=== PATIENT | male | born 1945 | race Caucasian/White ===

== ENCOUNTER 2024-01-25 06:08 | Day surgery (SDC) | payer MEDICARE, BC ==
[~2024-01-25] VITALS: Ht 182.9 cm; Wt 94.8 kg
[~2024-01-25 06:08] MED LIST: AMOX500 PO; ASPI81CH PO; BOSULIF PO; PREG50 PO; RAMI2.5 PO; ROSU10TA PO
[2024-01-25] MEDS ORDERED: propofoL 20 ML IV ONE (06:38)
[2024-01-25] MEDS ORDERED: Midazolam HCl 1MG / ML 2ML Vial ONE (06:38)
[2024-01-25] MEDS ORDERED: FentaNYL Citrate 50 MCG/ML 2 ML Injection ONE (06:38)
[2024-01-25] MEDS ORDERED: Rocuronium Bromide 10 MG/ML 5ML Injection IV ONE ×2 (06:40→07:45)
[2024-01-25] MEDS ORDERED: Bupivacaine 0.5% HCl 5 MG/ML 30MLVIAL ONE (06:43)
[2024-01-25] MEDS ORDERED: Tranexamic Acid 1,000 MG in NS 100 ML IV SCH (06:45)
[2024-01-25] MEDS ORDERED: SCEMBLIX40 MG (06:53)
[2024-01-25] MEDS ORDERED: Lactated Ringer's 1,000 ML IV ONE ×2 (07:06→07:20)
[2024-01-25] MEDS ORDERED: CeFAZolin Sodium 2,000 MG VIAL ONE (07:06)
[2024-01-25] MEDS ORDERED: NS 50 ML IV ONE (07:06)
[2024-01-25] MEDS ORDERED: Lidocaine 1%-Epineph 1:100000 20 ML MDV ONE (07:12)
[2024-01-25] MEDS ORDERED: Dexamethasone Sod Phos 10 MG/ML 1ML VIAL ONE (07:53)
[2024-01-25] MEDS ORDERED: Ondansetron HCl 2 MG / ML 2ML Vial ONE (07:53)
[2024-01-25] MEDS ORDERED: EPINEPhrine HCl 1 MG/ML 1ML Amp XX ONE (07:57)
--- NOTE | 2024-01-25 08:07 | NUR ---
01/25/24 0807 Ericka Loco PATIENT ON TMAXX BED IN BEACH CHAIR POSITION. GEL PAD UNDER BUTTOCKS, WEDGE UNDER LEGS, GEL PADS UNDER DOULE SEATBELTS (AT WAIST AND BELOW KNEES), GEL PAD UNER RIGHT ARM ON ARMBOARD SECURED WITH WRIST RESTRAINT. 1ML OF EPI (1MG/ML) ADDED TO EACH OF THE FIRST THREE BAGS OF LR FOR IRRIGATION AT [facility].
[2024-01-25] MEDS ORDERED: Sugammadex Sodium 200 MG/2ML SDV (100 MG/ML) ONE (08:45)
[2024-01-25] MEDS ORDERED: Ketorolac Tromethamine 30mg Vial ONE (08:47)
[2024-01-25 10:12] VITALS: BP 102/70
--- NOTE | 2024-01-25 10:23 | NUR ---
01/25/[address] SAID THAT SECOND DOSE OF TXA WAS NOT NECESSARY. PT READY TO GO HOME BEFORE 2ND DOSE WOULDBE GIVEN. PT STABLE. NO C/O OF PAIN OR NAUSEA.
== END 2024-01-25 09:08 | disposition home or self-care (01) ==
LOC: ORSCSDS 06:08
PROVIDERS: Orthopaedic Surgery Sports Medicine
PROC: 0RNK4ZZ Release Left Shoulder Joint, Percutaneous Endoscopic Approach (ICD-10-PCS; principal; 2024-01-25 07:30)
PROC: 0LQ24ZZ Repair Left Shoulder Tendon, Percutaneous Endoscopic Approach (ICD-10-PCS; principal; 2024-01-25 07:30)
DX: M75.112 Incomplete rotator cuff tear or rupture of left shoulder, not specified as traumatic (principal); S43.432A Superior glenoid labrum lesion of left shoulder, initial encounter; M19.012 Primary osteoarthritis, left shoulder; M75.42 Impingement syndrome of left shoulder; M75.22 Bicipital tendinitis, left shoulder; I10 Essential (primary) hypertension
CPT/HCPCS: C1713; J0171; J0690; J1100; J1885; J2250; J2405; J2704; J3010; J7120

== ENCOUNTER 2024-07-22 16:52 | Inpatient (IN) | payer MEDICARE, BC ==
[~2024-07-22] VITALS: Ht 182.9 cm; Wt 94.3 kg
[~2024-07-22 16:52] MED LIST changes: +SCEMBLIX40 MG PO
[2024-07-22] MEDS ORDERED: Lactated Ringer's 1,000 ML IV ONE (17:25)
[2024-07-22 17:50] LABS: BASOPHILS ABSOLUTE AUTO 0.03 K/mm3 (0.00-0.23); BASOPHILS PERCENT AUTO 0 % (0-2); EOSINOPHILS ABSOLUTE AUTO 0.24 K/mm3 (0.00-0.68); EOSINOPHILS PERCENT AUTO 3 % (0-6); Hematocrit 35.7 % (37.0-53.0); Hemoglobin 11.8 g/dL (13.5-17.5); IMMATURE GRAN ABSOLUTE AUTO 0.04 K/mm3 (0.00-0.10); IMMATURE GRAN PERCENT AUTO 1 % (0-1); LYMPHOCYTES ABSOLUTE AUTO 0.67 K/mm3 (0.84-5.20); LYMPHOCYTES PERCENT AUTO 9 % (21-46); MONOCYTES ABSOLUTE AUTO 1.63 K/mm3 (0.16-1.47); MONOCYTES PERCENT AUTO 21 % (4-13); Mean Corpuscular HGB 26.8 pg (26.0-34.0); Mean Corpuscular HGB Conc 33.1 g/dL (31.5-36.5); Mean Corpuscular Volume 81 fL (80-100); Mean Platelet Volume 11.6 fL (9.1-12.4); NEUTROPHILS ABSOLUTE AUTO 5.02 K/mm3 (1.96-9.15); NEUTROPHILS PERCENT AUTO 66 % (41-73); Platelet Count 237 K/mm3 (150-400); RDW Standard Deviation 47.6 fL (35.1-46.3); Red Blood Cell Count 4.41 M/mm3 (4.30-5.90); White Blood Cell Count 7.63 K/mm3 (4.00-11.30)
[2024-07-22 18:02] LABS: Albumin, Blood 2.5 g/dL (3.4-5.0); Albumin/Globulin Ratio 0.7 (0.8-1.8); Bilirubin, Total 0.7 mg/dL (0.1-1.0); Calcium, Blood 7.7 mg/dL (8.5-10.1); Creatinine, Blood 2.23 mg/dL (0.60-1.20); Globulin, Blood 3.5 g/dL (2.2-4.0); Magnesium, Blood 1.6 mg/dL (1.6-2.4); Potassium, Blood 3.8 mmol/L (3.5-5.5)
[2024-07-22 18:14] LABS: Free Thyroxine 1.24 ng/dL (0.70-1.60)
[2024-07-22 18:16] LABS: Thyroid Stimulating Hormone 0.952 uIU/mL (0.360-4.800)
[2024-07-22] MEDS ORDERED: CefTRIAXone Sodium 1,000 MG in NS 100 ML IV ONE (18:40)
[2024-07-22 18:44] LABS: Source, Urine Clean Catch
[2024-07-22 18:48] LABS: Appearance, Urine Clear (Clear); Blood, Urine Neg (Neg); Color, Urine Amber (P-Yellow); Glucose Qualitative, Urine Neg (Neg); Ketones, Urine Neg (Neg); Leukocyte Esterase, Urine 1+ (Neg); Nitrite, Urine Neg (Neg); Protein, Urine 2+ (Neg); Specific Gravity, Urine 1.025 (1.003-1.022); Urobilinogen, Urine 1+ (Normal)
[2024-07-22 18:57] LABS: Bilirubin, Urine 1+ (Neg)
[2024-07-22 18:59] LABS: Bacteria Many /hpf; Calcium Oxalate Crystals Few /hpf; Mucus Light (0-Heavy); Red Blood Cells, Urine 0-2 /hpf (0-2); Squamous Epithelial Cells Rare /hpf (Few)
[2024-07-22] MEDS ORDERED: SPIRONOLACTONE25 MG PO (19:22)
[2024-07-22] MEDS ORDERED: CYMBALTA30 M2 PO (19:23)
[2024-07-22] MEDS ORDERED: CARVEDILOL12.5 MG PO (19:23)
[2024-07-22] MEDS ORDERED: ENTRESTO 49 MG1 EAC7 PO (19:24)
[2024-07-22 19:59] LABS: Influenza A, PCR NEGATIVE (NEGATIVE); Influenza B, PCR NEGATIVE (NEGATIVE); Resp Syncytial Virus, PCR NEGATIVE (NEGATIVE); SARS-Cov-2 (COVID-19) PCR, MMC NEGATIVE (NEGATIVE)
[2024-07-22] MEDS ORDERED: Ondansetron HCl 2 MG / ML 2ML Vial IV PRN (21:05)
[2024-07-22] MEDS ORDERED: FLU VACC TS2024-25(6MOS UP)/PF 45 MCG/0.5 ML SYRINGE IM SCH (21:05)
[2024-07-22] MEDS ORDERED: NS 1,000 ML IV SCH (21:05)
[2024-07-22 23:09] VITALS: BP 125/59
--- NOTE | 2024-07-22 23:32 | NUR ---
ADMIT NOTE 78 YR OLD MALE ADMITTED TO FLOOR FROM THE ED AITH DX OF AMB HYPOTENSIION AND WEAKNESS, FOR OBSERVATION. ALERT AND ORIENTED. INSUTUCTED ON HOW TO USE CALL LIGHT. BED ALARM ON FOR SAFETY. CALL LIGHT IN REACH
[2024-07-23 04:34] VITALS: BP 117/56
[2024-07-23 04:53] LABS: Adenovirus F 40/41 Not Detected (NOT DETECT); Astrovirus Not Detected (NOT DETECT); Campylobacter Sp Not Detected (NOT DETECT); Cryptosporidium Not Detected (NOT DETECT); Cyclospora Cayetanensis Not Detected (NOT DETECT); E. Coli O157 Not Detected (NOT DETECT); Entamoeba Histolytica Not Detected (NOT DETECT); Enteroaggregative E. coli-EAEC Not Detected (NOT DETECT); Enteropathogenic E. coli-EPEC Not Detected (NOT DETECT); Enterotoxigenic E. coli-ETEC Not Detected (NOT DETECT); Giardia Lamblia Not Detected (NOT DETECT); Norovirus GI/GII Not Detected (NOT DETECT); Plesiomonas Shigelloides Not Detected (NOT DETECT); Rotavirus A Not Detected (NOT DETECT); Salmonella Sp Not Detected (NOT DETECT); Sapovirus Not Detected (NOT DETECT); Shiga Toxin-prod E. coli-STEC Not Detected (NOT DETECT); Shigella/Enteroin E. coli-EIEC Not Detected (NOT DETECT); Vibrio Cholerae Not Detected (NOT DETECT); Vibrio Sp Not Detected (NOT DETECT); Yersinia Enterocolitica Not Detected (NOT DETECT)
--- NOTE | 2024-07-23 05:09 | NUR ---
PATIENT TRANSPORT OFFICER SUMMARY VSS. ADMITTED EARLIER THIS SHIFT FROM THE ED WITH AMBULATORY HYPOTENSION AND WEAKNESS. ED RN REPORTED HAD BEEN HAVING "DIARRHEA" A FEW TIMES AND THEY HAD SENT A STOOL SPECIMEN TO LAB FOR TESTS TO R/O C-DIFF. WAS REPORTED ALERT AND ORIENTED AND UP AD HERMELINDO. ARRIVED ON FLOOR, TRANSPORTER VOICED PT NEEDING OBSERVED IF OOB DUE TO WEAKNESS. PT AGREED TO USE OF CALL LIGHT WHEN NEEDING OOB. HAS BEEN UP TO THE BATHROOM SEVERAL TIMES. NOTE LOOSE STOOL. LINEN CHANGED SEVERAL TIMES. IVF STARTED BUT WAS PLACED ON HOLD DUE TO MULTIPLE OOB TRIPS AND INABILITY TO TAKE IV PUMP WITH. TOLERATING PO FLUIDS. AWAITING LAB RESULTS. PLACED ON CONTACT ISOLATION PRECAUTIONS UNTIL C-DIFF RULED OUT. HAS BEEN RESTING QUIETLY BETWEEN TRIPS TO THE RESTROOM. CALL LIGHT IN REACH, RAILS UP X 2, BED ALARM ON AND BED IN LOW POSITION FOR SAFETY. WILL CONT TO MONITOR
[2024-07-23 07:00] LABS: Bun/Creatinine Ratio 13.4 (12.0-20.0); Calcium, Blood 8.3 mg/dL (8.5-10.1); Creatinine, Blood 1.42 mg/dL (0.60-1.20); Potassium, Blood 3.4 mmol/L (3.5-5.5)
[2024-07-23 07:41] VITALS: BP 109/65
[2024-07-23] MEDS ORDERED: Potassium Chl 20MEQ/Water100ML 100 ML IV STA (08:05)
[2024-07-23] MEDS ORDERED: Pregabalin 75 MG Cap PO SCH (09:00)
[2024-07-23] MEDS ORDERED: Aspirin 81 MG Chew PO SCH (09:00)
[2024-07-23] MEDS ORDERED: Lactobacil 2-S.Thermo-Bifido 1 1 Cap PO SCH (09:00)
[2024-07-23] MEDS ORDERED: DULoxetine HCL 30 MG Cap DR PO SCH (09:00)
[2024-07-23] MEDS ORDERED: Carvedilol 6.25 MG Tab PO SCH (09:00)
[2024-07-23] MEDS ORDERED: Misc. Tablet PO SCH (09:00)
[2024-07-23] MEDS ORDERED: Heparin Sodium,Porcine 5,000 UNIT/0.5 ML SDV SC SCH (09:00)
[2024-07-23] MEDS ORDERED: Vancomycin HCl 125 MG Cap PO SCH (14:00)
[2024-07-23 15:54] VITALS: BP 114/57
--- NOTE | 2024-07-23 16:56 | NUR ---
SHIFT SUMMARY PATIENT A/OX4, ABLE TO MAKE NEEDS KNOWN. INDEPENDENT IN ROOM WITH AMBULATION. SPOUSE, PURNIMA, AT BEDSIDE ALL SHIFT. C DIFF + AND STARTED ON ORAL VANCO. CONTINUES WITH IV FLUIDS PER ORDERS, IV POTASSIUM ADMINISTERED THIS AM. TELEMETRY ORDER DISCONTINUED. CONTINUES TO HAVE LOOSE STOOLS, APPROXIMATELY 1 PER HOUR THIS SHIFT. NO OTHER CONCERNS AT THIS TIME.
[2024-07-23] MEDS ORDERED: CefTRIAXone Sodium 1,000 MG in NS 100 ML IV SCH (18:00)
[2024-07-23 20:46] VITALS: BP 111/67
[2024-07-24 04:10] VITALS: BP 108/68
--- NOTE | 2024-07-24 05:59 | NUR ---
SHIFT SUMMARY PT STATES STOOLS HAVE SLOWED DOWN, 5 LIQUID/LOOSE STOOLS THROUGH THE NIGHT. DENIES ANY ABD. DISCOMFORT, DIZZINESS/ LIGHTHEADEDNESS. IVF CONTINUES. SLEPT ON/OFF. ABLE TO CHANGE POSITIONS INDEPENDENTLY. CALL LIGHT WITHIN REACH, SIDE RAILS UP X2.
[2024-07-24 06:22] LABS: Hematocrit 32.3 % (37.0-53.0); Hemoglobin 10.9 g/dL (13.5-17.5); Mean Corpuscular HGB Conc 33.7 g/dL (31.5-36.5); Mean Corpuscular Volume 80 fL (80-100); Mean Platelet Volume 10.7 fL (9.1-12.4); Platelet Count 222 K/mm3 (150-400); RDW Coefficient Variation 15.8 % (11.7-14.2); RDW Standard Deviation 45.8 fL (35.1-46.3); Red Blood Cell Count 4.03 M/mm3 (4.30-5.90); White Blood Cell Count 5.79 K/mm3 (4.00-11.30)
[2024-07-24 06:38] LABS: Bun/Creatinine Ratio 14.1 (12.0-20.0); Calcium, Blood 7.8 mg/dL (8.5-10.1); Creatinine, Blood 0.99 mg/dL (0.60-1.20); Magnesium, Blood 1.9 mg/dL (1.6-2.4); Potassium, Blood 3.3 mmol/L (3.5-5.5)
[2024-07-24 08:11] VITALS: BP 106/61
[2024-07-24] MEDS ORDERED: Pregabalin 75 MG Cap PO SCH (09:00)
--- NOTE | 2024-07-24 09:00 | NUR ---
pt laying in bed with eyes open, nonverbal, has dobhoff for feeding at rate of 70mls/hr, daughter who is caregiver is at bedside, pt is alert, unable to assess orientation, makes eye contact, currently on 4liters mask, lungs are clear but dim t/o, resp even and unlabored, no cough noted, hrr, no edema noted, ppp faint, cap refill<3 sec, vs stable, afebrile, power glide to hever site is clear and pantent, btx4, abd flat soft nontender, voids vis kovacs cath, draining yellow urine, skin has mepilex to coccyx, otherwise c/w/d, edward gurrola, he is bedbound/wheelchair bound, call light in reach.
--- NOTE | 2024-07-24 09:00 | NUR ---
pt laying in bed awake watching tv, a/ox4, pleasant and cooperative with care, follows commands well, denies pain, lungs are dim t/o, resp even and ulabored, no cough noted, hrr, no edema noted, ppp+1, cap refill <3 sec, vs stable, afebrile, piv to rac site is clear and patent, btx4, abd flat soft nontender, voids without diff, skin c/w/d, maew, up indep edward, call light in reach.
[2024-07-24] MEDS ORDERED: Potassium Phosphate Dibasic 30 MM in Dextrose 5% 500 ML IV STA (09:01)
[2024-07-24 15:37] VITALS: BP 127/84
--- NOTE | 2024-07-24 19:43 | NUR ---
pt resting in bed, spouce at bedside most of the day, he gets himself up to the bathroom, reports he had five bm's today, and is better than yesterday. no acute changes this shift. call light in reach.
[2024-07-24 20:30] VITALS: BP 112/73
[2024-07-25 04:33] VITALS: BP 99/54
--- NOTE | 2024-07-25 06:05 | NUR ---
NOC SUMMARY- PT REPORTS STOOLING IS SLOWING DOWN. PT DENIE ANY DISCOMFORT OR SOB. PT REPORTS VOIDING WELL. PT TOLERATING PO FLUIDS. PT RESTED SOME. PT UP FREQUENTLY TO USE BATHROOM. CALL LIGHT IN REACH.
[2024-07-25 07:06] LABS: Albumin, Blood 2.2 g/dL (3.4-5.0); Anion Gap 9 mmol/L (3-11); Blood Urea Nitrogen 7 mg/dL (8-24); CO2, Blood 23 mmol/L (21-32); Calcium, Blood 8.1 mg/dL (8.5-10.1); Chloride, Blood 114 mmol/L (98-108); Creatinine, Blood 0.87 mg/dL (0.60-1.20); Glomerular Filtration Rate 88 (60-); Glucose, Blood 95 mg/dL (70-99); Phosphorus, Blood 3.5 mg/dL (2.5-4.9); Potassium, Blood 3.6 mmol/L (3.5-5.5); Sodium, Blood 142 mmol/L (136-145)
[2024-07-25 07:42] VITALS: BP 117/62
[2024-07-25] MEDS ORDERED: VANCOCIN HCL125 MG PO (10:46)
[2024-07-25] MEDS ORDERED: VISBIOME 112.51 EACH PO (10:46)
--- NOTE | 2024-07-25 12:34 | NUR ---
REPORT RECEIVED VERIFIED PT WANTING TO GO HOME SO WE ARE WAITING FOR MD TO ARRIVE. PT STATES HE FEELS FINE BUT II WAS LEAKING SO I DCED IV SINCE PT DIDNT HAVE ANY MEDICATION VIA IV. MD CAME IN AND GAVE DISCHARGE ORDERS, ORDERS WERE FAXED AND EXPLAINED TO PT. PT VERBALIZED UNDERSTANDING ALSO EXPLAINED TO . 1015 PT DISCHARGED
== END 2024-07-25 11:45 | disposition home or self-care (01) | DRG 372 ==
LOC: ER 16:52 → MEDS 21:01
PROVIDERS: Internal Medicine; Nurse Practitioner Acute Care; Student in an Organized Health Care Education/Training Program; ADMIT Internal Medicine
DX: A04.72 Enterocolitis due to Clostridium difficile, not specified as recurrent (principal); C92.10 Chronic myeloid leukemia, BCR/ABL-positive, not having achieved remission; N17.9 Acute kidney failure, unspecified; I50.22 Chronic systolic (congestive) heart failure; J90 Pleural effusion, not elsewhere classified; D64.9 Anemia, unspecified; E83.51 Hypocalcemia; E86.0 Dehydration; I11.0 Hypertensive heart disease with heart failure; E87.6 Hypokalemia; E83.39 Other disorders of phosphorus metabolism; Z88.1 Allergy status to other antibiotic agents; Z79.82 Long term (current) use of aspirin; Z79.899 Other long term (current) drug therapy; Z90.79 Acquired absence of other genital organ(s)
CPT/HCPCS: 0241U; 36415; 71045; 76770; 80048; 80053; 80069; 81001; 83605; 83690; 83735; 83880; 84100; 84145; 84439; 84443; 84484; 85025; 85027; 87086; 87324; 87507; 93005; 93010; 96361; 96365; 96366; 99285-25; A9270; J0696; J1644; J3480; J7030; J7060; J7120

== ENCOUNTER 2024-09-04 19:27 | Inpatient (IN) | payer MEDICARE, BC ==
[~2024-09-04] VITALS: Ht 182.9 cm; Wt 94.0 kg
[~2024-09-04 19:27] MED LIST changes: +CARVEDILOL12.5 MG PO; +CYMBALTA30 M2 PO; +ENTRESTO 49 MG1 EAC7 PO; +SPIRONOLACTONE25 MG PO; +VANCOCIN HCL125 MG PO; +VISBIOME 112.51 EACH PO
[2024-09-04] MEDS ORDERED: NS 500 ML IV SCH (20:00)
[2024-09-04 21:11] LABS: BASOPHILS ABSOLUTE AUTO 0.02 K/mm3 (0.00-0.23); BASOPHILS PERCENT AUTO 0 % (0-2); EOSINOPHILS ABSOLUTE AUTO 0.01 K/mm3 (0.00-0.68); EOSINOPHILS PERCENT AUTO 0 % (0-6); Hemoglobin 13.2 g/dL (13.5-17.5); IMMATURE GRAN ABSOLUTE AUTO 0.03 K/mm3 (0.00-0.10); IMMATURE GRAN PERCENT AUTO 0 % (0-1); LYMPHOCYTES ABSOLUTE AUTO 0.35 K/mm3 (0.84-5.20); LYMPHOCYTES PERCENT AUTO 4 % (21-46); MONOCYTES ABSOLUTE AUTO 0.52 K/mm3 (0.16-1.47); MONOCYTES PERCENT AUTO 6 % (4-13); Mean Corpuscular HGB 27.3 pg (26.0-34.0); Mean Corpuscular Volume 83 fL (80-100); Mean Platelet Volume 10.6 fL (9.1-12.4); NEUTROPHILS ABSOLUTE AUTO 8.54 K/mm3 (1.96-9.15); NEUTROPHILS PERCENT AUTO 90 % (41-73); Platelet Count 213 K/mm3 (150-400); RDW Coefficient Variation 15.9 % (11.7-14.2); RDW Standard Deviation 48.2 fL (35.1-46.3); Red Blood Cell Count 4.84 M/mm3 (4.30-5.90); White Blood Cell Count 9.47 K/mm3 (4.00-11.30)
[2024-09-04 21:32] LABS: Albumin, Blood 2.9 g/dL (3.4-5.0); Albumin/Globulin Ratio 0.8 (0.8-1.8); Bilirubin, Total 0.5 mg/dL (0.1-1.0); Bun/Creatinine Ratio 14.1 (12.0-20.0); Calcium, Blood 8.4 mg/dL (8.5-10.1); Creatinine, Blood 1.28 mg/dL (0.60-1.20); Globulin, Blood 3.8 g/dL (2.2-4.0); Magnesium, Blood 1.4 mg/dL (1.6-2.4); Potassium, Blood 4.4 mmol/L (3.5-5.5); Total Protein, Blood 6.7 g/dL (6.4-8.2)
[2024-09-04] MEDS ORDERED: NS 1,000 ML IV SCH (22:05)
[2024-09-04] MEDS ORDERED: Vancomycin HCl 125 MG Cap PO ONE (22:10)
[2024-09-04] MEDS ORDERED: Acetaminophen 500 MG Tab PO ONE (22:40)
[2024-09-04] MEDS ORDERED: Lactated Ringer's 1,000 ML IV SCH (23:50)
[2024-09-04] MEDS ORDERED: FLU VACC TS2024-25(6MOS UP)/PF 45 MCG/0.5 ML SYRINGE IM ONE (23:50)
[2024-09-04] MEDS ORDERED: Ondansetron 4 MG TAB PO PRN (23:55)
[2024-09-05] MEDS ORDERED: Magnesium Sulf 2 GM/Water 50ML 50 ML IV ONE (00:40)
[2024-09-05] MEDS ORDERED: Acetaminophen 325 MG TABLET PO PRN (00:45)
[2024-09-05 02:15] LABS: C DIFFICILE DNA POSITIVE (Negative)
[2024-09-05 04:35] LABS: BASOPHILS ABSOLUTE AUTO 0.04 K/mm3 (0.00-0.23); BASOPHILS PERCENT AUTO 1 % (0-2); EOSINOPHILS ABSOLUTE AUTO 0.01 K/mm3 (0.00-0.68); EOSINOPHILS PERCENT AUTO 0 % (0-6); Hematocrit 39.3 % (37.0-53.0); IMMATURE GRAN ABSOLUTE AUTO 0.02 K/mm3 (0.00-0.10); IMMATURE GRAN PERCENT AUTO 0 % (0-1); LYMPHOCYTES ABSOLUTE AUTO 0.54 K/mm3 (0.84-5.20); LYMPHOCYTES PERCENT AUTO 6 % (21-46); MONOCYTES ABSOLUTE AUTO 0.58 K/mm3 (0.16-1.47); MONOCYTES PERCENT AUTO 7 % (4-13); Mean Corpuscular HGB 27.3 pg (26.0-34.0); Mean Corpuscular HGB Conc 33.1 g/dL (31.5-36.5); Mean Corpuscular Volume 82 fL (80-100); Mean Platelet Volume 10.8 fL (9.1-12.4); NEUTROPHILS ABSOLUTE AUTO 7.37 K/mm3 (1.96-9.15); NEUTROPHILS PERCENT AUTO 86 % (41-73); Platelet Count 227 K/mm3 (150-400); RDW Coefficient Variation 15.9 % (11.7-14.2); RDW Standard Deviation 48.4 fL (35.1-46.3); Red Blood Cell Count 4.77 M/mm3 (4.30-5.90); White Blood Cell Count 8.56 K/mm3 (4.00-11.30)
[2024-09-05 05:03] LABS: Albumin/Globulin Ratio 0.8 (0.8-1.8); Bilirubin, Total 0.8 mg/dL (0.1-1.0); Bun/Creatinine Ratio 13.7 (12.0-20.0); Calcium, Blood 8.2 mg/dL (8.5-10.1); Creatinine, Blood 1.31 mg/dL (0.60-1.20); Globulin, Blood 3.9 g/dL (2.2-4.0); Total Protein, Blood 6.9 g/dL (6.4-8.2)
[2024-09-05] MEDS ORDERED: Lactobacil 2-S.Thermo-Bifido 1 1 Cap PO SCH (09:00)
[2024-09-05] MEDS ORDERED: Enoxaparin 40 MG/0.4 ML SYR SC SCH (09:00)
[2024-09-05] MEDS ORDERED: Fidaxomicin 200 MG Tab PO SCH (09:00)
[2024-09-05 13:29] VITALS: BP 113/73
[2024-09-05 14:40] VITALS: BP 115/76
[2024-09-05] MEDS ORDERED: NS 1,000 ML IV SCH (16:30)
--- NOTE | 2024-09-05 18:31 | NUR ---
report recieved verified, pt admit from er, vss a/ox4 pleasent, nodistress. pt independant in room and calls appropriatly. admission done. contact [facility] for cdiff.
[2024-09-05 19:55] VITALS: BP 108/65
[2024-09-06 02:30] VITALS: BP 97/64
[2024-09-06 05:35] LABS: Hemoglobin 12.3 g/dL (13.5-17.5); Mean Corpuscular HGB 27.3 pg (26.0-34.0); Mean Corpuscular HGB Conc 33.2 g/dL (31.5-36.5); Mean Corpuscular Volume 82 fL (80-100); Mean Platelet Volume 11.5 fL (9.1-12.4); Platelet Count 214 K/mm3 (150-400); RDW Coefficient Variation 16.1 % (11.7-14.2); RDW Standard Deviation 48.3 fL (35.1-46.3); White Blood Cell Count 5.52 K/mm3 (4.00-11.30)
--- NOTE | 2024-09-06 05:54 | NUR ---
Rn shift summary: Patient did not sleep much last night, he stated he was afraid he might be incontinent of stool. Pt is wearing pull up briefs. Patient states he feels he is improving this am with less diarrhea. He also feels better after his IV fluids during the night. Patient is up independently to the bathroom. Patient education given by PARK MANAGER because patient was unhooking the leads from his tele box each time he was up to the bathroom. He was educated on why it is important for the tele to be on all the time for adequate monitoring. Shown again the pocket in his gown to make it more conventient. Pt denies any abdominal pain this shift. Call light in reach. Uses it appropriately.
[2024-09-06 06:08] LABS: Albumin, Blood 2.9 g/dL (3.4-5.0); Anion Gap 11 mmol/L (3-11); Blood Urea Nitrogen 13 mg/dL (8-24); Bun/Creatinine Ratio 10.9 (12.0-20.0); CO2, Blood 22 mmol/L (21-32); Calcium, Blood 8.3 mg/dL (8.5-10.1); Chloride, Blood 111 mmol/L (98-108); Creatinine, Blood 1.19 mg/dL (0.60-1.20); Glomerular Filtration Rate 62 (60-); Glucose, Blood 98 mg/dL (70-99); Magnesium, Blood 2.2 mg/dL (1.6-2.4); Phosphorus, Blood 2.4 mg/dL (2.5-4.9); Potassium, Blood 3.6 mmol/L (3.5-5.5); Sodium, Blood 140 mmol/L (136-145)
[2024-09-06 07:52] VITALS: BP 121/75
[2024-09-06 15:52] VITALS: BP 124/61
--- NOTE | 2024-09-06 17:02 | NUR ---
SHIFT SUMMARY: "MATTY" IS A&OX4. VSS, PT STATES HIS BASELINE PULSE IS IN THE LOW FIFTIES. HE IS TOLERATING PO INTAKE WELL AND REPORTS ONE BOWEL MOVEMENT AND TWO "SMEARS" THIS SHIFT. HE HAS DENIED PAIN, IS INDEPENDENT IN THE ROOM, AND USES THE CALL LIGHT APPROPRIATELY. ATTENDS IN PLACE. ENCOURAGED PT TO PUSH FLUIDS AND INCREASE ACTIVITY PER MD RECOMMENDATION AT THE BEDSIDE, PT AGREEABLE AND COMPLIANT. HE IS LYING IN BED WITH THE CALL LIGHT IN REACH. WILL GIVE REPORT TO DAY SHIFT RN.
[2024-09-06] MEDS ORDERED: DIFICID200 MG PO (17:38)
[2024-09-06 21:03] VITALS: BP 118/57
--- NOTE | 2024-09-07 04:19 | NUR ---
SHIFT SUMMARY 79 YR M ADMITTED ON 09/06/24. DNI. NO ACUTE CHANGES THIS SHIFT. PT HAS NO C/O PAIN OR DISCOMFORT THIS SHIFT. HE STATED THAT HE JUST WANTED TO SLEEP WITH FEW INTERUPTIONS POSSIBLE. NO REPORTS OF BM THIS SHIFT. PT APPEARS TO HAVE SLEPT FOR MOST OF THIS SHIFT. HE IS PLEASANT AND COOPERATIVE WITH CARE. NO NEW CHANGES TO REPORT. BED IN LOW POSITION AND CALL LIGHT IN REACH.
[2024-09-07 04:23] VITALS: BP 119/70
[2024-09-07 05:04] LABS: Hematocrit 37.1 % (37.0-53.0); Hemoglobin 12.3 g/dL (13.5-17.5); Mean Corpuscular HGB Conc 33.2 g/dL (31.5-36.5); Mean Corpuscular Volume 82 fL (80-100); Mean Platelet Volume 11.3 fL (9.1-12.4); Platelet Count 224 K/mm3 (150-400); RDW Standard Deviation 47.8 fL (35.1-46.3); Red Blood Cell Count 4.55 M/mm3 (4.30-5.90); White Blood Cell Count 4.21 K/mm3 (4.00-11.30)
[2024-09-07 05:18] LABS: Albumin, Blood 2.9 g/dL (3.4-5.0); Anion Gap 10 mmol/L (3-11); Blood Urea Nitrogen 11 mg/dL (8-24); Bun/Creatinine Ratio 10.3 (12.0-20.0); CO2, Blood 25 mmol/L (21-32); Calcium, Blood 8.8 mg/dL (8.5-10.1); Chloride, Blood 112 mmol/L (98-108); Creatinine, Blood 1.07 mg/dL (0.60-1.20); Glomerular Filtration Rate 71 (60-); Glucose, Blood 106 mg/dL (70-99); Magnesium, Blood 2.2 mg/dL (1.6-2.4); Phosphorus, Blood 3.6 mg/dL (2.5-4.9); Potassium, Blood 3.7 mmol/L (3.5-5.5); Sodium, Blood 143 mmol/L (136-145)
[2024-09-07 07:42] VITALS: BP 130/77
[2024-09-07 15:59] VITALS: BP 131/84
[2024-09-07] MEDS ORDERED: Fidaxomicin 200 MG Tab PO ONE (16:35)
--- NOTE | 2024-09-07 17:28 | NUR ---
DISCHARGE INSTRUCTIONS DISCUSSED WITH PT AND AT BEDSIDE, PRINTED COPY GIVEN. ALL PERSONAL BELONGINGS SENT HOME WITH PT. IV REMOVED. HANDWRITTEN PRESCRIPTION FOR ANTIBIOTIC GIVEN TO PT'S WHO TOOK IT TO PHARMACY SO THAT MEDICATION COULD BE ORDERED AND PLAN IS TO BE DELIVERED TOMORROW. PT TRANSPORTED TO PERSONAL VEHICLE VIA WHEELCHAIR FOR TRANSPORTATION HOME.
== END 2024-09-07 18:10 | disposition home or self-care (01) | DRG 372 ==
LOC: ER 19:27 → ERHOLD 19:28 → MEDS 19:28
PROVIDERS: Emergency Medicine; Internal Medicine; Student in an Organized Health Care Education/Training Program; ADMIT Student in an Organized Health Care Education/Training Program
DX: A04.71 Enterocolitis due to Clostridium difficile, recurrent (principal); C92.10 Chronic myeloid leukemia, BCR/ABL-positive, not having achieved remission; I50.22 Chronic systolic (congestive) heart failure; N17.9 Acute kidney failure, unspecified; E86.0 Dehydration; I11.0 Hypertensive heart disease with heart failure; E83.42 Hypomagnesemia; Z79.82 Long term (current) use of aspirin; Z79.899 Other long term (current) drug therapy
CPT/HCPCS: 36415; 80053; 80069; 83735; 85025; 85027; 87324; 87493; 93005; 93010; 96361; 96365; 96366; 99285-25; A9270; G0378; J1650; J3475; J7030

== ENCOUNTER → 2024-11-16 | Outpatient (CLI) | payer MEDICARE, BC ==
[~2024-11-16] MED LIST changes: +DIFICID200 MG PO
[2024-11-17 01:07] LABS: C DIFFICILE DNA POSITIVE (Negative)
== END ==
LOC: LAB SHORT 13:45 → LAB 13:45 → LAB FUT 11-16 10:35
PROVIDERS: Internal Medicine Infectious Disease
DX: A04.71 Enterocolitis due to Clostridium difficile, recurrent (principal)
CPT/HCPCS: 87324; 87493